=== PATIENT | female | born 1985 | race Caucasian/White ===

== ENCOUNTER → 2019-11-14 13:46 | Outpatient (BNVA) | payer MEDICAID, SELFPAY | PROVIDERS: Family Provider Family Medicine; PCP Family Medicine; Visit Provider Nurse Practitioner | DX: F43.12 Post-traumatic stress disorder, chronic (principal); F41.1 Generalized anxiety disorder; F33.2 Major depressive disorder, recurrent severe without psychotic features | CPT/HCPCS: 99203 ==

== ENCOUNTER → 2019-12-26 13:49 | Outpatient (BNVA) | payer MEDICAID, SELFPAY | PROVIDERS: Family Provider Family Medicine; PCP Family Medicine; Visit Provider Nurse Practitioner | DX: F43.12 Post-traumatic stress disorder, chronic (principal); F41.1 Generalized anxiety disorder; F33.2 Major depressive disorder, recurrent severe without psychotic features; F15.20 Other stimulant dependence, uncomplicated | CPT/HCPCS: 99213 ==

== ENCOUNTER → 2020-01-11 12:43 | Outpatient (BNVA) | payer MEDICAID, SELFPAY | PROVIDERS: Family Provider Family Medicine; PCP Family Medicine; Visit Provider Specialist | DX: M79.7 Fibromyalgia (principal); F12.20 Cannabis dependence, uncomplicated; F32.9 Major depressive disorder, single episode, unspecified; E66.01 Morbid (severe) obesity due to excess calories; Z68.37 Body mass index [BMI] 37.0-37.9, adult; Z87.891 Personal history of nicotine dependence | CPT/HCPCS: 99213 ==

== ENCOUNTER → 2020-02-02 07:39 | Outpatient (BNVA) | payer MEDICAID, SELFPAY | PROVIDERS: Family Provider Family Medicine; PCP Family Medicine; Visit Provider Nurse Practitioner | DX: F33.2 Major depressive disorder, recurrent severe without psychotic features (principal); F41.1 Generalized anxiety disorder; F43.12 Post-traumatic stress disorder, chronic; F15.20 Other stimulant dependence, uncomplicated | CPT/HCPCS: 99214 ==

== ENCOUNTER → 2020-03-05 07:52 | Outpatient (BNVA) | payer MEDICAID, SELFPAY | PROVIDERS: Family Provider Family Medicine; PCP Family Medicine; Visit Provider Nurse Practitioner | DX: F43.12 Post-traumatic stress disorder, chronic (principal); F33.2 Major depressive disorder, recurrent severe without psychotic features; F41.1 Generalized anxiety disorder; F15.20 Other stimulant dependence, uncomplicated | CPT/HCPCS: 99214 ==

== ENCOUNTER → 2020-05-03 08:01 | Outpatient (BNVA) | payer MEDICAID, SELFPAY | PROVIDERS: Family Provider Family Medicine; PCP Family Medicine; Visit Provider Nurse Practitioner | DX: F43.12 Post-traumatic stress disorder, chronic (principal); F41.1 Generalized anxiety disorder; F33.2 Major depressive disorder, recurrent severe without psychotic features; F15.20 Other stimulant dependence, uncomplicated | CPT/HCPCS: 99214 ==

== ENCOUNTER → 2020-08-08 07:47 | Outpatient (BNVA) | payer MEDICAID, SELFPAY | PROVIDERS: Family Provider Family Medicine; PCP Family Medicine; Visit Provider Nurse Practitioner | DX: F43.12 Post-traumatic stress disorder, chronic (principal); F41.1 Generalized anxiety disorder; F33.2 Major depressive disorder, recurrent severe without psychotic features; F15.20 Other stimulant dependence, uncomplicated; F12.20 Cannabis dependence, uncomplicated; F10.20 Alcohol dependence, uncomplicated | CPT/HCPCS: 99214 ==

== ENCOUNTER 2020-08-13 14:41 | Outpatient (CLI) | payer MEDICAID, SELFPAY ==
--- NOTE | 2020-08-13 14:49 | MR_ITS ---
WS: [id number] MRI LUMBAR SPINE NONCONTRAST TECHNIQUE: Sagittal T1, T2 and STIR imaging. Axial T1 and T2 imaging. CLINICAL INFORMATION: LOW BACK PAIN COMPARISON: None. FINDINGS: Mild lumbar curve. No acute compression. No high-grade central canal narrowing. L1-L2: Mild annular bulging with a tiny shallow central protrusion. Slight effacement of ventral thec al sac. Spinal canal and foramen are patent. L2-L3: Normal. L3-L4: No significant disc bulging. Mild facet arthropathy. Spinal canal and foramen are patent. L4-L5: Mild annular bulging. Mild facet arthropathy. Spinal canal and foramen are patent. L5-S1: Mild annular bulging with slight effacement of the ventral thecal sac. Mild facet arthropathy. Spinal canal and foramen are patent. A few tiny disc protrusions in the mid thoracic spine. Visualized pelvic bony structures: Normal. Paravertebral soft tissues: Normal. MR/MR lumbar spine wo con* [id number] IMPRESSION: 1. Mild lumbar curve. No acute compression. No high-grade central canal stenos is. 2. Mild annular bulging L1-2 with a tiny shallow central protrusion. Spinal ca nal and foramen are patent. 3. Mild facet arthropathy L3-L5. 4. A few tiny protrusions in the mid thoracic spine more prominent at T5-T6 an d T6-T7.
--- NOTE | 2020-08-13 14:50 | XR_ITS ---
WS: [id number] Lateral flexion and extension views of the L-spine are submitted for evaluation. Comparison with prio r routine study 03/30/2017. Flexion and extension views of the lumbar spine show no evidence of subluxation or instability. No fr acture noted. Minimal spondylosis. Slight disc space narrowing at L5-S1. There appears to be some martinez itation in flexion. XR/XR lumbar spine f/e only [id number] IMPRESSION: 1. Limited flexion of the lumbar spine. 2. No evidence of lumbar instability or subluxation. 3. Other minor findings as above.
== END 2020-08-13 14:42 | disposition home or self-care (01) ==
LOC: RADWPI 14:46
PROVIDERS: Family Provider Internal Medicine; PCP Internal Medicine; Visit Provider Nurse Practitioner
DX: M51.26 Other intervertebral disc displacement, lumbar region (principal); M47.816 Spondylosis without myelopathy or radiculopathy, lumbar region; M51.24 Other intervertebral disc displacement, thoracic region
CPT/HCPCS: 72120; 72148

== ENCOUNTER → 2020-09-28 08:55 | Outpatient (BNVA) | payer MEDICAID, SELFPAY | PROVIDERS: Family Provider Family Medicine; PCP Family Medicine; Visit Provider Nurse Practitioner | DX: F43.12 Post-traumatic stress disorder, chronic (principal); F41.1 Generalized anxiety disorder; F33.2 Major depressive disorder, recurrent severe without psychotic features; F15.20 Other stimulant dependence, uncomplicated; F10.20 Alcohol dependence, uncomplicated; F12.20 Cannabis dependence, uncomplicated | CPT/HCPCS: 99214 ==

== ENCOUNTER 2020-11-01 02:46 | Emergency (ER) | payer MEDICAID, SELFPAY ==
[2020-11-01 02:54] VITALS: BP 135/99; PULSE 83; RESP 16; TEMP 36.8; O2SAT 96; BMI 41.5
--- NOTE | 2020-11-01 02:59 | XR_ITS ---
WS: [id number] Portable AP upright chest, 11/01/2020 Clinical Data: cp Comparison: PA and lateral chest, 01/03/2017. Findings: No nodules, masses or effusions are seen. The heart is normal. The pulmonary vascularity is not increased. No pneumonia or pneumothorax is seen. XR/XR chest 1V portable [id number] Impression: Negative chest.
--- NOTE | 2020-11-01 02:59 | XR_ITS ---
WS: [id number] Thoracic spine, 3 views, 11/01/2020 Clinical Data: back pain Comparison: Thoracic spine, 03/30/2017. Findings: No compression fractures are seen. The disc heights are normal. The paravertebral regions are normal. XR/XR thoracic spine 3V* [id number] Impression: Negative thoracic spine.
--- NOTE | 2020-11-01 02:59 | ECG_ITS ---
[facility] Test Date: 2020-11-01 Pat Name: Kirstie Jenkins Department: Room: Gender: Female Billing And Insurance Coordinator: : 1985 Requested By: Sherin Hall Order Number: [id number] Reading MD: GM COTTRELL Measurements Intervals [place] Rate: 72 P: -6 AR: 149 QRS: 46 QRSD: 77 T: 38 QT: 384 QTc: 422 Interpretive Statements SINUS RHYTHM Compared to ECG 08/08/2019 14:30:39 Myocardial infarct finding no longer present Electronically Signed On 11-01-2020 20:29:13 SECOND VP HR ASSESSMENT by GM COTTRELL [id number]
--- NOTE | 2020-11-01 03:00 | ED_ITS ---
HPI - Chest Pain General: Chief Complaint: Chest Pain Stated Complaint: chest/upper back pain Time Seen by Provider: 11/01/20 02:48 Source: patient Mode of arrival: ambulatory Limitations: no limitations History of Present Illness: HPI narrative: 35-year-old female states she has been having upper back pain for over a month. She states mainly her T-spine and its sharp in nature. She states it is much worse with palpation or movement. She does have a history of scoliosis and back pain. She states her pain is a 8 out of 10. She denies any vomiting. She states that she is having some pain in her chest as well but mostly in her back. Associated symptoms: Deny abdominal pain, dyspnea, fever(s), nausea or vomiting Review of Systems Const: Denies: fever(s), chills, body aches or change in appetite Eyes: Denies: blurry vision or eye discomfort ENMT: Denies: throat pain or dental pain Card: Denies: chest pain Resp: Denies: dyspnea GI: Denies: abdominal pain, nausea, vomiting or diarrhea : Denies: dysuria Musc: Reports: back pain; Denies: neck pain Skin/Breast: Denies: rash Neuro: Denies: headache(s) Psych: Denies: depression Anupam/Lymph: Denies: easy bruising All/Imm: Denies: urticaria PFS ED PFSH: Medical History (Updated 11/01/20 @ 04:53 by Sherin Hall MD) Alcohol dependence, uncomplicated Cannabis dependence, uncomplicated Generalized anxiety disorder Major depressive disorder, recurrent severe without psychotic features 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 Other stimulant dependence, uncomplicated Post-traumatic stress disorder, chronic Family History Denies family history of Diabetes CAD (coronary artery disease) Cancer Hypertension Stroke Social History Smoking and tobacco status: former smoker Quit status (tobacco): has quit using tobacco Year quit tobacco: 09/2019 Alcohol intake: current Alcohol intake frequency: 0-2 Drinks per Day Alcohol type: beer History of recent travel: No Physical Exam Const: COMMON NORMALS: no acute distress, patient oriented x3 and healthy appearing HENMT: COMMON NORMALS: normocephalic and atraumatic HEAD & SCALP: normocephalic and atraumatic Eye: COMMON NORMALS: Equal, round and reactive pupils present and EOMs intact bilaterally PUPIL: Yes Equal, round and reactive pupils present Neck/C-Spine: COMMON NORMALS: full ROM and supple Chest: COMMONS NORMALS: normal inspection of the chest and normal palpation of entire chest wall Resp: COMMON NORMALS: normal respiratory effort, No retractions, No use of accessory muscles and clear to auscultation bilaterally AUSCULTATION: clear to auscultation bilaterally Cardio: COMMON NORMALS: regular rate, regular rhythm and No murmurs present (Cardio) RATE: regular rate RHYTHM: regular rhythm GI: COMMON NORMALS: Normal to inspection, nondistended, normoactive bowel sounds present, Soft to palpation, non-tender and no masses PALPATION: Yes Soft to palpation Back/Pelvis: OTHER: Paraspinal tenderness over thoracic spine. No midline thoracic tenderness. Extremity: COMMON NORMALS: normal to inspection and full ROM Neuro: COMMON NORMALS: patient oriented x3, moves all extremities and no focal motor deficits Psych: COMMON NORMALS: mental status grossly normal, Normal thought process present and cooperative THOUGHT PROCESS: Normal thought process present Skin: COMMON NORMALS: no rashes or lesions noted and no wounds GENERAL SKIN EXAM: no rashes or lesions noted Course Vital Signs: Vital signs: Vital Signs Temperature 98.2 F 11/01/20 02:54 Pulse Rate 83 11/01/20 02:54 Respiratory Rate 16 11/01/20 02:54 Blood Pressure 135/99 11/01/20 02:54 Pulse Oximetry 96 11/01/20 02:54 MDM - Chest Pain MDM Narrative: Medical decision making narrative: Patient presents here with back pain is likely muscular in nature. X-ray here is negative and blood work is normal as well. She feels much improved after IV pain meds. Will prescribe her oral meds and she is to follow-up with her PCP and return if worsening. Lab Data: Labs: Lab Results 11/01/20 11/01/20 11/01/20 Range/Units 03:35 03:35 04:29 WBC Cancelled 6.3 Corrected WBC Cancelled RBC Cancelled 4.76 Hgb Cancelled 13.4 Hct Cancelled 41.5 MCV Cancelled 87.2 MCH Cancelled 28.2 MCHC Cancelled 32.3 RDW Cancelled 13.1 Plt Count Cancelled 241 MPV Cancelled 9.6 Gran % Cancelled Neut % (Auto) Cancelled 48.6 Lymph % (Auto) Cancelled 42.0 Sandoval % (Auto) Cancelled 6.7 Eos % (Auto) Cancelled 1.9 Baso % (Auto) Cancelled 0.5 Neut # (Auto) Cancelled 3.06 Lymph # (Auto) Cancelled 2.6 [place] # (Auto) Cancelled 0.4 Eos # (Auto) Cancelled 0.1 Baso # (Auto) Cancelled 0.0 Absolute Gran (aut o) Cancelled Nucleated RBC % (a uto) Cancelled 0 Nucleated RBCs # Cancelled 0.0 Sodium 137 (136-145) mmol/L Potassium 4.5 (3.5-5.1) mmol/L Chloride 106 (98-107) mmol/L Carbon Dioxide 19 L (22-29) mmol/L Anion Gap 16.5 (5-19) BUN 15 (6-20) mg/dL Creatinine 0.7 (0.5-0.9) mg/dL GFR Calculation 96.4 (90-130) mL/min Glucose 104 (65-115) mg/dL Calculated Osmolal ity 285 (285-295) mOsm/k g Calcium 8.9 (8.5-10.5) mg/dL Total Bilirubin 0.2 (0.15-1.2) mg/dL AST 64 H (0-32) U/L ALT 44 H (0-33) U/L Alkaline Phosphata se 89 (35-105) IU/L Total Protein 7.2 (6.6-8.7) g/dL Albumin 3.8 (3.5-5.2) g/dL Globulin 3.4 (1.3-4.6) g/dL Imaging Data^: CXR: Attestation: I personally reviewed and interpreted this imaging study as follows: My impression: No acute abnormality xr t spine: Attestation: I personally reviewed and interpreted this imaging study as follows: My impression: no acute abnormality EKG Data^: EKG 1: Attestation: I personally reviewed and interpreted this EKG as follows: EKG interpretation date: 11/01/20 EKG interpretation time: 03:31 Interpretation: nsr hr [address] or t wave abnormalities qrs 77 qtc 408 Discharge Plan Discharge Patient Disposition: Home Clinical Impression: Back pain Qualifiers: Back pain location: thoracic back pain Chronicity: acute Back pain laterality: bilateral Qualified Code(s): M54.6 - Pain in thoracic spine Condition: Stable Prescriptions: [place] 5-325 mg tablet 1 tab PO Q6H PRN (Reason: pain) Qty: 14 RF: 0 Robaxin-750 750 mg tablet 750 mg PO Q6H Qty: 30 RF: 0 Naprosyn 500 mg tablet 500 mg PO BID PRN (Reason: pain) Qty: 20 RF: 0 No Action paroxetine HCl [Paxil] 10 mg tablet 10 mg PO .HS Qty: 30 RF: 1 Discharge Orders: Discharge ED (Routine); Ordered 11/01/20 Ordered By: Sherin Hall Referrals: Ela Calderon MD [Primary Care Provider] - 1-3 days Discharge Diet: Advance as tolerated Discharge Activity: Resume usual activity Patient Instructions: Back Pain (ED) Coding Level of Care Code ED Skatesman for Chg Fwd Exam Comprehensive
[2020-11-01] MEDS: morphine 4 mg/mL SDV 1 mL IVP (03:42)
[2020-11-01] MEDS: ketorolac 30 mg/mL INJ IVP (03:43)
[2020-11-01 04:09] LABS: Albumin Level 3.8 g/dL (3.5-5.2); Alkaline Phosphatase 89 IU/L (35-105); Blood Urea Nitrogen 15 mg/dL (6-20); Carbon Dioxide 19 mmol/L (22-29); Chloride 106 mmol/L (98-107); Globulin 3.4 g/dL (1.3-4.6); Glomerular Filtration Rate 96.4 mL/min (90-130); Glucose 104 mg/dL (65-115); Osmolality Calculated 285 mOsm/kg (285-295); Sodium 137 mmol/L (136-145); Total Bilirubin 0.2 mg/dL (0.15-1.2); Total Protein 7.2 g/dL (6.6-8.7)
[2020-11-01 04:14] LABS: Alanine Aminotransferase 44 U/L (0-33); Anion Gap 16.5 (5-19); Aspartate Amino Transferase 64 U/L (0-32); Potassium 4.5 mmol/L (3.5-5.1)
[2020-11-01 04:42] LABS: Calcium 8.9 mg/dL (8.5-10.5)
[2020-11-01 04:45] LABS: Basophils % 0.5 %; Eosinophils # 0.1 10^3/uL (0.0-0.8); Eosinophils % 1.9 %; Hematocrit 41.5 % (37.0-47.0); Hemoglobin 13.4 g/dL (11.5-15.3); Lymphocytes # 2.6 10^3/uL (0.8-4.8); Mean Corpuscular HGB Conc 32.3 g/dL (30.0-36.0); Mean Corpuscular Hemoglobin 28.2 pg (28.0-34.0); Mean Corpuscular Volume 87.2 fL (81-99); Mean Platelet Volume 9.6 fL (7.4-10.4); Monocytes # 0.4 10^3/uL (0.2-0.9); Monocytes % 6.7 %; Neutrophils # 3.06 10^3/uL (1.8-7.7); Neutrophils % 48.6 %; Nucleated Red Blood Cells % 0 %; Platelet Count 241 10^3/cmm (130-400); Red Blood Count 4.76 10^6/uL (4.1-5.3); Red Cell Distribution Width 13.1 % (12.1-15.1); White Blood Count 6.3 10^3/uL (4.0-10.0)
[2020-11-01 05:10] VITALS: PULSE 76; O2SAT 96
== END 2020-11-01 05:10 | disposition home or self-care (01) ==
PROVIDERS: Emergency Provider Emergency Medicine; PCP Family Medicine
DX: M54.6 Pain in thoracic spine (principal); Z87.891 Personal history of nicotine dependence
CPT/HCPCS: 12345; 71045; 72072; 80053; 85025; 93005; 96374; 96375; 99281; 99283; J1885; J2270

== ENCOUNTER → 2020-12-11 08:04 | Outpatient (BNVA) | payer MEDICAID, SELFPAY | PROVIDERS: PCP Family Medicine; Visit Provider Nurse Practitioner | DX: F41.1 Generalized anxiety disorder (principal); F33.2 Major depressive disorder, recurrent severe without psychotic features; F10.20 Alcohol dependence, uncomplicated; F12.20 Cannabis dependence, uncomplicated; F15.20 Other stimulant dependence, uncomplicated; F43.12 Post-traumatic stress disorder, chronic | CPT/HCPCS: 99214 ==

== ENCOUNTER 2021-09-11 09:22 | Outpatient (CLI) | payer MEDICAID, SELFPAY ==
--- NOTE | 2021-09-11 09:28 | US_ITS ---
WS: [id number] RIGHT UPPER QUADRANT ULTRASOUND HISTORY: ABNORMAL LIVER FUNCTION TESTS COMPARISON: 02/16/2015 Liver: 18.2 cm in length. There is mildly enlarged liver. Coarsened echotexture from hepatic steatosi s. No mass or bile duct dilatation. Gallbladder: Normally distended gallbladder with no stones or wall thickening. CBD: 0.3 cm Pancreas: Normal size and echogenicity. Right kidney: 10.7 cm in length. Normal size and echogenicity. No hydronephrosis or mass. Aorta and IVC: Unremarkable abdominal aorta and IVC. No ascites. US/US abdomen limited [id number] IMPRESSION: 1. Normal gallbladder. 2. Moderate hepatomegaly with diffuse hepatic steatosis.
== END 2021-09-11 09:23 | disposition home or self-care (01) ==
LOC: US 09:22
PROVIDERS: PCP Internal Medicine; Visit Provider Internal Medicine
DX: R94.5 Abnormal results of liver function studies (principal); R16.0 Hepatomegaly, not elsewhere classified; K76.0 Fatty (change of) liver, not elsewhere classified
CPT/HCPCS: 76705

== ENCOUNTER → 2021-09-16 16:16 | Outpatient (BNVA) | payer MEDICAID, SELFPAY | PROVIDERS: Visit Provider Registered Nurse Neonatal Intensive Care | DX: J02.9 Acute pharyngitis, unspecified (principal); H66.91 Otitis media, unspecified, right ear | CPT/HCPCS: 87880 ==

== ENCOUNTER → 2022-02-20 10:01 | Outpatient (BNVA) | payer MEDICAID, SELFPAY | PROVIDERS: Visit Provider Social Worker Clinical | DX: F41.1 Generalized anxiety disorder (principal); F43.12 Post-traumatic stress disorder, chronic; F60.3 Borderline personality disorder | CPT/HCPCS: 90791 ==

== ENCOUNTER → 2022-02-24 11:00 | Outpatient (BNVA) | payer MEDICAID, SELFPAY | PROVIDERS: Visit Provider Nurse Practitioner | DX: F43.12 Post-traumatic stress disorder, chronic (principal); F10.21 Alcohol dependence, in remission; F12.20 Cannabis dependence, uncomplicated; F15.21 Other stimulant dependence, in remission | CPT/HCPCS: 90792 ==

== ENCOUNTER 2022-10-30 08:22 | Outpatient (CLI) | payer MEDICAID, SELFPAY ==
--- NOTE | 2022-10-30 | US_ITS ---
WS: [id number] TRANSVAGINAL PELVIC ULTRASOUND HISTORY: IRREGULAR PERIODS COMPARISON: None available. Uterus: 9.4 cm x 6.6 cm x 4.4 cm. Normal size anteverted uterus. No fibroid or mass. Small amount of fluid along the cervical canal. Endometrium: 1.3 cm. Normal trilaminar appearance of the endometrium. No mass or increased vascularit y. Right ovary: 3.2 cm x 2.8 cm x 2.5 cm. Normal size and vascularity, no cystic or solid masses. Left ovary: 2.7 cm x 1.9 cm x 2.3 cm. Normal size and vascularity, no cystic or solid masses. No free fluid in the cul-de-sac. US/US transvaginal [id number] IMPRESSION: Normal transvaginal pelvic ultrasound.
== END 2022-10-30 08:23 | disposition home or self-care (01) ==
LOC: RAD 08:23
PROVIDERS: PCP Family Medicine; Visit Provider Family Medicine
DX: N92.6 Irregular menstruation, unspecified (principal)
CPT/HCPCS: 76830

== ENCOUNTER 2023-05-26 09:05 | Outpatient (CLI) | payer MEDICAID, SELFPAY ==
--- NOTE | 2023-05-26 09:17 | XR_ITS ---
WS: [id number] XR lumbar spine 6V w f/e [id number] REASON FOR EXAM: CHRONIC BACK PAIN FINDINGS: The lumbar spine is unchanged compared to 08/13/2020. There is moderate narrowing of the L1-L2 disc space with endplate sclerosis and small osteophytosis. Mild narrowing of the L2-L3 disc space. Moderate narrowing of the L5-S1 disc space. No significant compression deformity or focal lesion of the lumbar vertebrae. No spondylolysis. No significant listhesis. No significant vertebral body movement with flexion and extension. IMPRESSION: Stable lumbar spine with mild/moderate degenerative spondylosis as above.
== END 2023-05-26 09:06 | disposition home or self-care (01) ==
LOC: RAD 09:12
PROVIDERS: PCP Family Medicine; Visit Provider Family Medicine
DX: M47.816 Spondylosis without myelopathy or radiculopathy, lumbar region (principal); G89.29 Other chronic pain
CPT/HCPCS: 72114

== ENCOUNTER → 2023-06-04 09:45 | Outpatient (BNVA) | payer MEDICAID, SELFPAY | PROVIDERS: PCP Family Medicine; Referring Provider Family Medicine; Visit Provider Physician Assistant | DX: M54.9 Dorsalgia, unspecified (principal); M54.41 Lumbago with sciatica, right side; M54.42 Lumbago with sciatica, left side; G89.29 Other chronic pain | CPT/HCPCS: 99203 ==

== ENCOUNTER → 2023-07-16 09:38 | Outpatient (BNVA) | payer MEDICAID, SELFPAY | PROVIDERS: PCP Family Medicine; Visit Provider Physician Assistant | DX: M54.41 Lumbago with sciatica, right side (principal); M54.42 Lumbago with sciatica, left side; G89.29 Other chronic pain | CPT/HCPCS: 99213 ==

== ENCOUNTER 2023-08-13 08:44 | Outpatient (CLI) | payer MEDICAID, SELFPAY ==
--- NOTE | 2023-08-13 08:45 | MR_ITS ---
WS: [id number] MRI LUMBAR SPINE NONCONTRAST TECHNIQUE: Sagittal T1, T2 and STIR imaging. Axial T1 and T2 imaging. CLINICAL INFORMATION: Lower back pain COMPARISON: MRI 08/13/2020 FINDINGS: Mild lumbar curve. No acute compression. No high-grade central canal stenosis. Prominent LEFT proximal foraminal protrusion T5-6 seen on the thoracic spine director environmental imaging. L1-L2: Mild annular bulging with a tiny shallow central protrusion. Tiny annular fissure. Spinal charles l and foramen are patent. Mild facet arthropathy. L2-L3: No significant disc bulging. Mild facet arthropathy. Spinal canal and foramen are patent. L3-L4: Mild annular bulge with a tiny annular fissure. Mild LEFT and no significant RIGHT foraminal n arrowing. Mild facet arthropathy. L4-L5: Mild facet arthropathy. Spinal canal and foramen are patent. L5-S1: Mild annular bulging with a small annular fissure. Tiny central protrusion. Spinal canal and f oramen are patent. Mild facet arthropathy. Visualized pelvic bony structures: Normal. Paravertebral soft tissues: Normal. Small RIGHT renal cyst. IMPRESSION: 1. Mild lumbar curve. No acute compression. No high-grade central canal stenosis. 2. New LEFT subarticular protrusion L3-4 impinges the LEFT subarticular recess and traversing LEFT L 4 nerve root. Mild LEFT L3-4 foraminal narrowing. 3. Tiny shallow central protrusion and small annular fissure at L5-S1. 4. Tiny shallow central protrusion L1-2 with a tiny annular fissure. 5. Mild facet arthropathy L3-L4 L4-L5. 6. Prominent LEFT proximal foraminal protrusion T5-6 seen on the thoracic spine director environmental imaging. This can be further evaluated with thoracic spine MRI.
== END 2023-08-13 08:45 | disposition home or self-care (01) ==
PROVIDERS: PCP Family Medicine; Visit Provider Physician Assistant
DX: M51.26 Other intervertebral disc displacement, lumbar region (principal); M51.24 Other intervertebral disc displacement, thoracic region; G89.29 Other chronic pain; M54.41 Lumbago with sciatica, right side; M54.42 Lumbago with sciatica, left side
CPT/HCPCS: 72148

== ENCOUNTER → 2023-08-18 09:47 | Outpatient (BNVA) | payer MEDICAID, SELFPAY | PROVIDERS: PCP Family Medicine; Visit Provider Physician Assistant | DX: M54.41 Lumbago with sciatica, right side (principal); M54.42 Lumbago with sciatica, left side; G89.29 Other chronic pain | CPT/HCPCS: 99213 ==

== ENCOUNTER 2024-01-05 16:28 | Outpatient (CLI) | payer MEDICAID, SELFPAY ==
--- NOTE | 2024-01-05 16:36 | XRR_ITS ---
PROCEDURE INFORMATION: Exam: XR Left Ankle Exam date and time: 01/05/2024 4:39 PM Age: 38 years old Clinical indication: Pain and injury or trauma; Fall; Sprain or strain; Ankle; Left; Injury details: Patient fell Thursday; Additional info: Left ankle pain TECHNIQUE: Imaging protocol: Radiologic exam of the left ankle. Views: 3 or more views. COMPARISON: No relevant prior studies available. FINDINGS: Bones/joints: No acute fracture or dislocation identified. The ankle mortise is not widened. Soft tissues: There is lateral ankle soft tissue swelling. XR/XR ankle LT min 3V* [id number] IMPRESSION: 1. No acute fracture identified.
== END 2024-01-05 16:29 | disposition home or self-care (01) ==
LOC: RAD 16:30
PROVIDERS: PCP Family Medicine; Visit Provider Family Medicine
DX: M25.572 Pain in left ankle and joints of left foot (principal)
CPT/HCPCS: 73610

== ENCOUNTER → 2024-07-20 08:59 | Outpatient (BNVA) | payer OTHER, SELFPAY | PROVIDERS: PCP Family Medicine; Visit Provider Psychiatry & Neurology Psychiatry | DX: F41.1 Generalized anxiety disorder (principal) | CPT/HCPCS: 80061; 83036 ==

== ENCOUNTER 2025-05-11 16:20 | Emergency (ER) | payer MEDICAID, SELFPAY ==
--- OUTSIDE RECORDS SUMMARY | 2019-03-17 06:08 | XMS_ITS | Continuity of Care Document ---
Author Organization [facility] Address [address] [id number] [address] Phone Care Team Providers Care Talent Development Specialist Name Role Phone [facility] Unavailable Unavailable Allergies, Adverse Reactions, Alerts Substance Reaction Status Criticality latex Active No Information WARNIN allergy(ies) could not be collected because the type is not supported. Please contact the source practice for further details. Medications Medication Instructions Dosage Effective Dates (start - stop) Status Comments Cymbalta 30 mg capsule,delayed release take 1 capsule by oral route 2 times every day - Active Cymbalta 60 mg capsule,delayed release take 1 capsule by oral route every day - Active buspirone 10 mg tablet take 1 tablet by oral route 3 times every day 10 MG - Active baclofen 10 mg tablet take 1 tablet by oral route 3 times every day 10 MG - Active hydrocodone 5 mg-acetaminophen 325 mg tablet take 1 tablet by oral route every 6 hours as needed for pain for post-op pain 1.00 tablet - Active CYCLOBENZAPRINE HCL (unknown strength) take 1 tablet by oral route 2 times every day Not Available - Active Procedures Procedure Date Limited Oral Evaluation Problem Focused Intraoral Periapical First Film Intraoral Periapical Each Additional Film Extraction, Erupted Tooth Or Exposed Teresa t (Elevati Extraction, Erupted Tooth Or Exposed Teresa t (Elevati EDR Approval Note EDR Approval Note Intraoral Periapical First Film Limited Oral Evaluation Problem Focused Extraction, Erupted Tooth Or Exposed Teresa t (Elevati EDR Approval Note Advance Directives Directive Yes / No Effective Date File Name No Information Encounters Encounter Description Practice Location Reason(s) For Visit Diagnoses Date Provider Providers Copied on Encounter [facility], [id number] [place], [place], [id number], [place] tel:[phone] Family Medicine F1 No Information 9 [facility]. [address], [place], [id number], [place]. tel:[phone] [facility], [id number], [id number], [place] tel:[phone] [facility] Encounter for dental exam and cleaning w/o abnormal findings [facility]. [address] [place], [address], [place]. tel:[phone] Referring Provider: Dakotah Rosales, [address] [place], [address]. tel:[phone] [facility], [id number], [id number], [place] tel:[phone] [facility] Encounter for dental exam and cleaning w/o abnormal findings No Information Family History Family Member Type Diagnosis Age At Onset No Information Payers Payer name Insurance type Covered constitution party ID Eyala paul(s) D Medicaid [id number] Social History Type Description Quantity Date Captured Comments Alcohol Use Details Unknown Caffeine Use Details Unknown Tobacco Use Status No Information Smoking Status No Information Sex Female Sexual Orientation Heterosexual Gender Identity Female Chief Complaint And Reason For Visit No Information Reason For Referral Reason For Referral No Information History Of Present Illness Encounter Date Complaint History Of Prese nt Illness No Information Functional Status Date Functional Assessmen t No Information Instructions Date Instruction Additional Infor mation No Information Assessments Type Assessment Date No Information Patient Care Teams Name Effective Dates (start - stop) Status Members No Information
[2024-07-28 10:07] VITALS: BP 148/94
[2024-07-28 10:11] VITALS: BMI 30.9
[2025-05-11 16:22] VITALS: BP 124/81; PULSE 103; RESP 26; TEMP 36.5; O2SAT 99
--- NOTE | 2025-05-11 16:39 | ECG_ITS ---
[facility]: [facility]25[facility]11 Pat Name: Kirstie Jenkins Department: Room: Gender: Female Smoke Eater: : 1985 Requested By: Guanako Stark Order Number: [id number] Reading MD: Measurements Intervals [place] Rate: 88 P: 40 ND: 163 QRS: 46 QRSD: 81 T: 50 QT: 385 QTc: 467 Interpretive Statements SINUS RHYTHM LOW QRS VOLTAGE IN PRECORDIAL LEADS [QRS DEFLECTION < 1.0 mV IN CHEST LEADS] [id number]
--- NOTE | 2025-05-11 16:39 | XRR_ITS ---
PROCEDURE INFORMATION: Exam: XR Chest Exam date and time: 05/11/2025 4:42 PM Age: 40 years old Clinical indication: Cough and dyspnea; Additional info: Dyspnea/cough TECHNIQUE: Imaging protocol: Radiologic exam of the chest. Views: 1 view. COMPARISON: CR XR chest 1V portable [id number] 11/01/2020 3:13 AM FINDINGS: Lungs: No consolidation. Low lung volumes. Pleural spaces: Unremarkable. No pleural effusion. No pneumothorax. Heart/Mediastinum: Unremarkable. No cardiomegaly. Bones/joints: Unremarkable. XR/XR chest 1V portable [id number] IMPRESSION: No acute findings.
[2025-05-11 16:43] LABS: Alveolar-Arterial Oxygen Gradi 3.8 mmHg (5-10); Arterial Blood Gas Hematocrit 43.8 % (37-47); Blood Gas Operator Identificat AMH; Blood Gas Sample Site Brachial, right; Blood Gas Sample Type Arterial; Carboxyhemoglobin 0.7 %THgb (0.4-20.1); Glucose Level-ABG 100.0 mg/dL (70-115); HCO3 ABG 20.4 mmol/L (22-26); Ionized Calcium Level - ABG 1.2 mmol/L (1.1-1.4); Methemoglobin 0.9 % (0.4-1.5); Oxygen Saturation ABG 99.2; PO2 ABG 93.4 mmHg (80.0-100.0); PO2 FiO2 Ratio Arterial Blood 444; Potassium Level - ABG 3.1 mmol/L (3.5-5.0); Sodium Level - ABG 143.0 mmol/L (131-143)
[2025-05-11 16:44] LABS: ABG PCO2 19.7 mmHg (35-45); ABG PH Result 7.62 (7.35-7.45)
[2025-05-11 16:46] LABS: Hematocrit 40.0 % (36-47); Hemoglobin 14.00 g/dL (11.27-16.99); Mean Corpuscular HGB Conc 35.0 g/dL (30-55); Mean Corpuscular Hemoglobin 29.2 pg (27-33); Mean Corpuscular Volume 83.5 fl (85-98); Nucleated Red Blood Cells % 0 %; Platelet Count 262 10^3/cmm (157-399); Red Blood Count 4.79 10^6/uL (3.85-5.65); White Blood Count 6.64 10^3/uL (3.29-11.43)
[2025-05-11 17:06] LABS: Troponin(5th) Baseline < 6 ng/L (0-10)
[2025-05-11 17:08] LABS: Alanine Aminotransferase 19 U/L (0-33); Albumin Level 4.3 g/dL (3.5-5.2); Alkaline Phosphatase 104 U/L (35-105); Aspartate Amino Transferase 20 U/L (0-32); Blood Urea Nitrogen 10 mg/dL (6-20); Calcium 9.3 mg/dL (8.5-10.5); Carbon Dioxide 18 mmol/L (22-29); Chloride 106 mmol/L (98-107); Creatinine Clr Calc Pharmacy 96.8840; Globulin 2.8 g/dL (1.3-4.6); Glucose 88 mg/dL (65-115); Osmolality Calculated 292 mOsm/kg (285-295); Sodium 142 mmol/L (136-145); Total Protein 7.1 g/dL (6.6-8.7)
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
[2025-05-11 17:43] LABS: Anion Gap 21.6 (5-19); Potassium 3.6 mmol/L (3.5-5.1)
[2025-05-11 17:59] VITALS: BP 131/91; PULSE 95; RESP 18; O2SAT 98
[2025-05-11 18:00] VITALS: PULSE 88; O2SAT 97
[2025-05-11] MEDS: LORazepam 1 MG/0.5 ML injection IVP (18:20)
--- NOTE | 2025-05-11 18:21 | PC.NURSE ---
charge nurse michelle went to room to room to DC PT. PT stated to nurse i am unable to sign those papers i cant move my left side. Dr. Hernandez notified. This nurse went to assess PT. Asked Pt to lift left arm, PT wiggling and tapping fingers, but states she can not lift her arm. PT does lift left leg, but appears tpo be a struggle. Physician aware of situation. Will hold DC for now.
== END 2025-05-11 18:38 | disposition home or self-care (01) ==
PROVIDERS: Emergency Provider Family Medicine; PCP Family Medicine
DX: R06.4 Hyperventilation (principal); Z72.0 Tobacco use
CPT/HCPCS: 36415; 36600; 71045; 80051; 80053; 82330; 82805; 84484; 85025; 93005; 96374; 99285; J2060